=== PATIENT | male | born 1995 | race Caucasian/White ===

== ENCOUNTER 2019-06-18 18:30 | Emergency (ER) | payer BC ==
--- NOTE | 2019-06-18 18:41 | PDOC ---
Rapid Medical Evaluation Time Seen by Provider: 06/18/19 18:36 Medical Evaluation: 06/18/19 18:36 I have performed a brief in-person evaluation of this patient. The patient presents with a chief complaint of:pruritic rash to back x weeks. No obvious inciting factors Pertinent physical exam findings:multiple oval erythematous rimmed lesions of varying sizes w/ trace overlying scales to R mid back, ?tinea corporis I have ordered the following:nothing The patient will proceed to the ED for further evaluation. Discharge Disposition - Diagnosis Tinea corporis - Referrals - Patient Instructions - Post Discharge Activity
[2019-06-18 18:42] VITALS: BP 118/78; PULSE 62; TEMP 98.5; BMI 23.7
--- NOTE | 2019-06-18 19:16 | PDOC ---
History of Present Illness - General Chief Complaint: Rash Stated Complaint: RASH Time Seen by Provider: 06/18/19 18:36 - History of Present Illness Initial Comments: 06/18/19 19:14 23-year-old male presents for rash on his back x2 weeks Past History - Past Medical History Allergies/Adverse Reactions: Allergies Allergy/AdvReac Type Severity Reaction Status Date / Time No Known Allergies Allergy Verified 06/18/19 18:39 Home Medications: Ambulatory Orders Nystatin Cream [Mycostatin Cream -] 1 applic TP BID #1 applic 06/18/19 CVA: No COPD: No - Psycho Social/Smoking Cessation Hx Smoking History: Current every day smoker Have you smoked in the past 12 months: Yes Number of Cigarettes Smoked Daily: 20 Information on smoking cessation initiated: No Hx Alcohol Use: No Drug/Substance Use Hx: No Review of Systems - Review of Systems Constitutional: No: Fever Integumentary: Yes: Pruritus, Rash *Physical Exam - Vital Signs Last Vital Signs Temp Pulse Resp BP Pulse Ox 98.5 F 62 18 118/78 98 06/18/19 18:39 06/18/19 18:39 06/18/19 18:39 06/18/19 18:39 06/18/19 18:39 - Physical Exam 06/18/19 19:14 There is a geographical circular rash in 3 discrete circles with sharp edges on the back Medical Decision Making - Medical Decision Making 06/18/19 19:14 Nystatin for ringworm Discharge - Discharge Information Problems reviewed: Yes Clinical Impression/Diagnosis: Tinea corporis Condition: Stable Disposition: HOME - Admission No - Additional Discharge Information Prescriptions: Nystatin Cream [Mycostatin Cream -] 1 applic TP BID #1 applic - Follow up/Referral Referrals: Dilma Lyon MD [Staff Physician] - - Patient Discharge Instructions Additional Instructions: Please use the nystatin cream as directed twice a day and without fail follow- up with dermatology in 2 to 3 days for further evaluation and treatment options. Return to the emergency room for further issues. - Post Discharge Activity
== END 2019-06-18 19:27 | disposition home or self-care (01) ==
LOC: JERFT 18:30
DX: B35.4 Tinea corporis (principal); F17.210 Nicotine dependence, cigarettes, uncomplicated
CPT/HCPCS: 99283-25